=== PATIENT | male | born 1980 | race Two or more races ===

== ENCOUNTER 2021-03-22 06:50 | Outpatient (CLI) | payer OTHER | END 2021-03-22 06:55 | disposition home or self-care (01) | LOC: LAB 06:50 | PROVIDERS: ATTEND Emergency Medicine Pediatric Emergency Medicine | DX: Z03.818 Encounter for observation for suspected exposure to other biological agents ruled out (principal) ==

== ENCOUNTER 2021-03-25 07:37 | Outpatient (CLI) | payer OTHER | END 2021-03-25 07:39 | disposition home or self-care (01) | LOC: LAB 07:37 | PROVIDERS: ATTEND Emergency Medicine Pediatric Emergency Medicine | DX: Z03.818 Encounter for observation for suspected exposure to other biological agents ruled out (principal) ==